=== PATIENT | female | born 1965 | race Caucasian/White ===

== ENCOUNTER → 2018-09-28 | Outpatient (CLI) | payer OTHER, SELFPAY ==
--- NOTE | 2018-09-28 10:32 | US_ITS ---
STUDY: ABDOMINAL ULTRASOUND - RIGHT UPPER QUADRANT REASON FOR VISIT: Female, 52 years old. Palpable lump of right flank TECHNIQUE: Ultrasound evaluation of the right upper quadrant was performed with real-time and static simon-scale imaging. TECHNICAL QUALITY: Adequate. COMPARISON: None. FINDINGS: The area was scanned corresponding to the palpable lump of the right flank. (Lump corresponds to region of the right kidney, which measures 11.0 x 6.4 x 6.0 cm. Right renal cortical thickness is 2.0 cm. There are 2 right renal cysts measuring 3.0 x 2.1 x 1.6 cm and 1.4 x 1.6 x 1.3 cm. A nonobstructing 3 mm right renal calcification is noted. US/Abdomen Limited IMPRESSION: Palpable lump corresponds to region of right kidney. 2 right renal cysts are noted. There is a nonobstructing 3 mm right renal calculus. No soft tissue mass or cyst was identified. Electronically Signed: Jun Farah MD at 22:45 EDT , Service support ,
== END | disposition home or self-care (01) ==
PROVIDERS: Family Provider Student in an Organized Health Care Education/Training Program; PCP Student in an Organized Health Care Education/Training Program; Referring Provider Registered Nurse; Visit Provider Registered Nurse
DX: R19.09 Other intra-abdominal and pelvic swelling, mass and lump (principal)
CPT/HCPCS: 76705

== ENCOUNTER 2019-02-25 08:26 | Emergency (ER) | payer OTHER, SELFPAY ==
[2019-02-25 08:26] VITALS: BP 151/82; PULSE 87; RESP 16; TEMP 35.9; O2SAT 97; BMI 36.9
--- NOTE | 2019-02-25 08:55 | EKG12_ITS ---
Test Reason : Blood Pressure : / mmHG Vent. Rate : 076 BPM Atrial Rate : 076 BPM P-R Int : 158 ms QRS Dur : 066 ms QT Int : 382 ms P-R-T Axes : 046 001 017 degrees QTc Int : 429 ms Normal sinus rhythm Normal ECG Confirmed by BERNADETTE BRAR, NATO ([id number]), writer editor RE MALLORY ([id number]) on 03/02/2019 11:19:15 AM Referred By: JOANN Confirmed By:NATO FLEMING MD
--- NOTE | 2019-02-25 08:56 | RAD_ITS ---
STUDY: X-RAY CHEST REASON FOR EXAM: Female, 53 years old. Attics. Hypertension. Vertigo. TECHNIQUE: PA and lateral views of the chest. COMPARISON: Comparison is made with prior study dated April 15, 2012. FINDINGS: EKG electrodes are seen. The lungs are clear and expanded. There is no demonstrated pleural abnormality. Normal size heart. Normal mediastinum and donny. Normal visualized pulmonary arteries. Normal visualized aortic arch and descending thoracic aorta. There are mild degenerative changes of the visualized thoracic spine. Normal visualized ribs, clavicles, and shoulders. There is no demonstrated abnormality of the visualized soft tissue structures of the upper abdomen. RAD/Chest PA and Lateral IMPRESSION: Normal x-ray examination of the chest. Electronically Signed: Gio Joyce, at 9:33 EST , Service support ,
--- NOTE | 2019-02-25 08:57 | ED.DCSUM_ITS ---
History of Present Illness Chief Complaint: Hypertension Informant: Patient Onset: Yesterday Context: Gradual Onset Timing: Intermittent Narrative: Patient is a 53-year-old female with history of peripheral edema and diabetes mellitus presented to evening with multiple complaints. Patient states she is been feeling lightheaded and like she might pass out. She states it is worse with she is up and doing things. She also notes that she has been having a pounding headache. Headache was gradual in onset. Headache is worse when she is working. 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 These symptoms all started yesterday. They have been intermittent. Patient had her blood pressure checked by nurse and it was 168/83. Patient denies any history of high blood pressure was quite concerned so she came to the emergency room. In addition patient notes that she has a history of peripheral vertigo. The symptoms have started over the past few days as well or worse when she lays down or moves too quickly. Patient notes that about 5 days ago she had a sore throat and congestion which have resolved. In addition she knows that she had a rash on her neck that she describes as burning and itching. Patient placed hydrocortisone cream on and this seemed to improve. She denies any new soaps, jewelry or perfumes. Patient also developed an episode of sharp stabbing pain in her right upper quadrant yesterday. She states is been constant but now the pain is in her back and not her abdomen. She did have some associated nausea but no vomiting or GI symptoms. She notes her urine has been more odorous and darker. Patient denies any vision changes. Past Medical History - Allergies and Home Meds Allergies/Adverse Reactions: Allergies Sulfa (Sulfonamide Antibiotics) Allergy (Verified 02/25/19 08:35) Rash chocolate flavor Adverse Reaction (Verified 02/25/19 08:35) Other NOSE BLEED DIAL SOAP Allergy (Uncoded 02/25/19 08:35) Rash Primary Care Physician: Taurus Cortez DO [Primary Care Provider] - Past Medical History: - - IVs mellitus, varicose veins, peripheral edema Surgical History: appendectomy Smoking Status: Never smoker Alcohol: None Drugs: None Review of Systems General: Reports: Chills, Malaise, - - Lightheaded. Denies: Fever, Sweats Eyes: Denies: Visual changes - bilaterally, Diplopia ENT: Denies: Rhinorrhea, Sore throat Cardiovascular: Denies: Chest pain, Palpitations Respiratory: Denies: Dyspnea, Cough, Dyspnea on exertion Gastrointestinal: Reports: Abdominal pain - Right upper quadrant, Nausea. Denies: Vomiting, Diarrhea, Melena, Hematochezia Genitourinary: Denies: Dysuria, Hematuria, Frequency Musculoskeletal: Denies: Back pain, Extremity Pain Skin: Reports: Rash - Neck. Denies: Wounds Neurological: Reports: Headache, - - Vertigo. Denies: Weakness, Numbness Physical Exam Vital Signs/Narrative: Vital Signs Temp Pulse Resp BP Pulse Ox 02/25/19 08:26 96.7 F L 87 16 151/82 H 97 Inital Vital Signs reviewed: Yes General: Well nourished, Well developed, No Acute Distress Head: Normocephalic, Atraumatic Eyes: Perrl, EOMI, - - Bilateral horizontal fatiguing nystagmus ENT: Moist mucous membranes, No rhinorrhea, TM's clear. Negative for: Nasal congestion, Sinus tenderness Neck: Supple, Nontender Cardiovascular: Regular rate, Regular rhythm, No murmurs Respiratory: No distress, CTA bilaterally, Chest nontender Abdomen: Soft, Nontender, Nondistended, Normal bowel sounds. Negative for: Guarding, Rebound tenderness, Berman's sign Back: Nontender, Normal Inspection. Negative for: CVA tenderness Extremities: Nontender, No edema Skin: Normal color, Rash - Mild erythematous, maculo-papular, blanching rash over her anterior neck and upper chest Neurological: Alert, Oriented x3, Cranial nerves II-XII grossly intact, Normal Strength, Normal Sensation, - - Normal coordination Psychological: Normal affect, Normal Mood Diagnostic/Tx/Re-eval Chest X-Ray - ED: 2 View, Read by ED Physician, Read by Radiologist, No Acute Disease Clinical Impression(s) from Imaging Studies Chest X-Ray 02/25/19 08:56 IMPRESSION: Normal x-ray examination of the chest. Electronically Signed: Gio Joyce, at 9:33 EST , Service support , Laboratory Data 1102/25/19 02/25/19 08:40 08:40 09:05 WBC 7.6 RBC 4.65 Hgb 14.0 Hct 42.2 MCV 90.8 MCH 30.1 MCHC 33.2 RDW Std Deviation 41.7 RDW Coeff of Mike 12.8 Plt Count 264 MPV 10.9 Immature Gran % (Auto) 0.300 Neut % (Auto) 61.2 Lymph % (Auto) 29.4 [place] % (Auto) 8.0 Eos % (Auto) 0.8 Baso % (Auto) 0.3 Absolute Neuts (auto) 4.7 Absolute Lymphs (auto) 2.23 Nucleated RBC % 0 Sodium 138 Potassium 4.1 Chloride 101 Carbon Dioxide 27.0 Anion Gap 10 BUN 14 Creatinine 0.76 Estim Creat Clear Calc 70.81 Est GFR (MDRD) Af Amer 102 Est GFR (MDRD) Non-Af 84 BUN/Creatinine Ratio 18.4 Glucose 267 H Calcium 8.9 Total Bilirubin 0.50 AST 15 ALT 35 Alkaline Phosphatase 52 Troponin I < 0.015 Total Protein 8.0 Albumin 3.7 Globulin 4.3 H Albumin/Globulin Ratio 0.9 Lipase 151 Urine Color Yellow Urine Clarity Cloudy Urine pH 6.0 Ur Specific [place] 1.020 Urine Protein 15 H Urine Glucose (UA) 1000 H Urine Ketones 5 H Urine Occult Blood 10 H Urine Nitrite Positive H Urine Bilirubin Negative Urine Urobilinogen Normal Ur Leukocyte Esterase 500 H Urine RBC 0-5 SEEN Urine WBC 50-100 SEEN Ur Squamous Epith Cells 0-5 SEEN Urine Bacteria 4+ Urine Mucus 2+ - Rhythm Strip Rhythm Strip: Sinus Rhythm Rate: 76 Ectopy: None - EKG Initial EKG Interpretation: Sinus Rhythm, - - Normal sinus rhythm rate of 78 Normal intervals Normal axis Normal ST segments - Medical Decision Making Patient is evaluated for multiple complaints including lightheadedness, vertigo, generalized malaise and nausea. She appears nontoxic in no acute distress. Vital signs are significant only for mild hypertension. On repeat patient's blood pressure starts to improve without any intervention. She does have of findings consistent with peripheral vertigo on exam that seem to be worse with rightward gaze. Otherwise she has benign physical exam. EKG is grossly normal. CBC normal. CMP is remarkable for hyperglycemia however patient has a normal anion gap and normal bicarb. Urinalysis is consistent with urinary tract i nfection. As patient is diabetic urine culture sent. She started on Keflex. She is also given a dose of Antivert in the emergency room. Patient did comment that she did not take her Lantus last night because she was sleeping all day yesterday. Patient is instructed to take a half dose of her Lantus when she gets home. She is instructed to follow-up with her primary care doctor next week for reevaluation of her blood glucose. Patient is counseled on signs and symptoms requiring return to the emergency room. Patient verbalizes agreement and understand this plan. Patient discharged home in stable and improved condition. ED Disposition - Plan for ED Patient: Disposition: Home or Assisted Living Diagnosis: Urinary tract infection, Peripheral vertigo involving right ear, Hyperglycemia due to type 2 diabetes mellitus Instructions: Understanding Urinary Tract Infections (UTIs), Benign Positional Vertigo Prescriptions: Meclizine HCl [Antivert] 25 mg PO 4X/DAY PRN PRN #15 tab PRN Reason: Vertigo Prescription Printed Cephalexin [Keflex] 500 mg PO BID #10 cap Prescription Printed Referrals: Taurus Cortez DO [Primary Care Provider] - Additional Instructions: I suspect you feeling bad because of urinary tract infection. You are started on antibiotics for this. Make sure you drink plenty of fluids. Your blood glucose was elevated today. Take a half dose of Lantus when you get home and then take your normal dose of Lantus tonight. Do the exercises we discussed to help with your vertigo. You have been given a printout for these. Continue to apply hydrocortisone ointment to your rash as needed. Return to the emergency room if you develop any worsening symptoms or further concerns.
[2019-02-25] MEDS: Ketorolac 15 MG/ML Vial IV (09:02)
[2019-02-25] MEDS: Meclizine HCl 25 MG Tablet PO (09:02)
[2019-02-25 09:05] VITALS: BP 120/59; PULSE 80; RESP 20; O2SAT 96
[2019-02-25 09:12] VITALS: BP 159/68; PULSE 67; RESP 20; O2SAT 99
[2019-02-25 09:16] LABS: Absolute Lymphocyte Count 2.23 X10^3/uL (0.83-4.51); Absolute Neutrophil Count 4.7 X10^3/uL (2.0-7.7); Basophil# 0.02 X10^3/uL; Basophil% 0.3 % (0-1); Eosinophil# 0.06 X10^3/uL; Eosinophils% 0.8 % (0-5); Hematocrit 42.2 % (37-47); Lymphocyte # 2.23 X10^3/ul (4.0); Lymphocyte % 29.4 % (19-41); Mean Corp Hgb Conc 33.2 g/dL (32-36); Mean Corpuscular Hgb 30.1 pg (27.0-32.0); Mean Corpuscular Volume 90.8 fL (81-99); Mean Platelet Vol. 10.9 fl (6.2-12.0); Monocyte# 0.61 X10^3/uL; NRBC Flagged by Analyzer 0 % (0-5); Neutrophil # 4.65 X10^3/uL (2.7-7.7); Neutrophil % 61.2 % (47-70); Platelet Count 264 K/mm3 (150-450); RBC Distribution Width CV 12.8 % (11.6-14.6); RBC Distribution Width SD 41.7 fl (35.1-43.9); Red Blood Count 4.65 M/mm3 (4.2-5.4); White Blood Count 7.6 K/mm3 (4.4-11.0)
[2019-02-25 09:24] LABS: ALB/GLOB Ratio 0.9 RATIO (0.9-2.4); AST(SGOT) 15 U/L (15-37); Alanine Aminotransfer ALT/SGPT 35 U/L (13-56); Albumin, Serum 3.7 g/dL (3.2-5.0); Alkaline Phosphatase 52 U/L (45-117); Anion Gap 10 (5-15); BUN 14 mg/dL (7-18); BUN/Creat Ratio 18.4 RATIO (10-20); Calcium,Total 8.9 mg/dL (8.5-10.1); Chloride 101 mmol/L (98-107); Creatinine, Serum 0.76 mg/dL (0.55-1.02); EST Glomerular Filtration Rate 84 mL/min (>60); Est Glom Filt Rate - Afr Amer 102 mL/min (>60); Estimated Creatinine Clearance 70.81 ml/min; Globulin 4.3 g/dL (2.2-4.2); Glucose 267 mg/dL (74-106); Lipase 151 U/L (73-393); Potassium 4.1 mmol/L (3.5-5.1); Sodium Level 138 mmol/L (136-145)
[2019-02-25 09:35] LABS: Color, Urine Yellow (Yellow); Glucose, Dipstick 1000 mg/dl (Normal); Ketone-Dipstick 5 mg/dl (Negative); Leukocyte Esterase-Dipstick 500 /ul (Negative); Nitrite-Dipstick Positive (Negative); Occult Blood-Urine 10 /ul (Negative); Protein-Dipstick 15 mg/dl (Negative); Urine Bilirubin Dipstick Negative (Negative); Urine Clarity Cloudy (Clear); Urine Urobilinogen Normal (Normal)
[2019-02-25 09:56] LABS: Red Blood Cells-Urine 0-5 SEEN /hpf (0-5); Squamous Epithelial Cells - UA 0-5 SEEN /hpf (5-10); White Blood Cells 50-100 SEEN /hpf (0-5)
[2019-02-25 09:57] LABS: Bacteria 4+ /hpf (None Seen); Mucous, Urine 2+ /hpf (<or=2+)
[2019-02-25] MEDS: Cephalexin 250 MG Capsule 500 MG PO (10:06)
[2019-02-25 10:07] VITALS: BP 114/85; PULSE 71; RESP 14; O2SAT 98
== END 2019-02-25 10:13 | disposition home or self-care (01) ==
PROVIDERS: Emergency Provider Emergency Medicine; Family Provider Student in an Organized Health Care Education/Training Program; PCP Student in an Organized Health Care Education/Training Program
DX: N39.0 Urinary tract infection, site not specified (principal); H81.391 Other peripheral vertigo, right ear; E11.65 Type 2 diabetes mellitus with hyperglycemia; R21 Rash and other nonspecific skin eruption; I10 Essential (primary) hypertension; R60.0 Localized edema; I83.90 Asymptomatic varicose veins of unspecified lower extremity; Z79.4 Long term (current) use of insulin; Z79.84 Long term (current) use of oral hypoglycemic drugs
CPT/HCPCS: 71046; 80053; 81001; 83690; 84484; 85025; 87077; 87086; 87088; 87186; 93005; 96374; 99285; A4216

== ENCOUNTER 2019-07-06 06:58 | Emergency (ER) | payer OTHER, SELFPAY ==
[2019-07-06 06:59] VITALS: BP 170/75; PULSE 81; RESP 18; TEMP 36.4; O2SAT 97; BMI 37.8
--- NOTE | 2019-07-06 07:19 | RAD_ITS ---
STUDY: X-RAY CHEST REASON FOR EXAM: Female, 53 years old. Cough, sore throat TECHNIQUE: Single AP portable view of the chest. COMPARISON: Comparison is made with prior study dated 02/25/2019. FINDINGS: The lungs are clear and expanded. There is no demonstrated pleural abnormality. Normal size heart. Normal mediastinum and donny. Normal visualized pulmonary arteries. Normal visualized aortic arch and descending thoracic aorta. Normal visualized thoracic spine. Normal visualized ribs, clavicles, and shoulders. There is no demonstrated abnormality of the visualized soft tissue structures of the upper abdomen. RAD/Chest 1 View (Portable) IMPRESSION: Normal x-ray examination of the chest. Electronically Signed: Gio Joyce, at 8:22 EDT , Service support ,
--- NOTE | 2019-07-06 07:20 | ED.DCSUM_ITS ---
- ER Visit Summary Date of Service: 07/06/19 Chief Complaint: Cough and sore throat History of Present Illness: The patient is a 53 F who presents with cough and sore throat that is been getting worse over the past 3 days. Patient states her cough is a dry cough. Patient states her throat feels scratchy. Patient states her throat feels better after drinking hot liquids. Patient denies any fevers or chills. Patient denies any shortness of breath. Patient does admit to some rhinorrhea and postnasal drainage. Patient admits to an episode of vomiting after coughing but denies any other nausea or vomiting. Physical Examination: Vital signs are stable. Patient is afebrile. Patient is in no acute distress. Oral mucosa is pink and moist. Oropharynx shows some postnasal drainage. There are no exudates. Tympanic membranes are clear. Neck is supple. Trachea is midline. There is no JVD or lymphadenopathy. Heart was regular rate and rhythm. Lungs are clear and equal bilaterally. Abdomen is soft and nontender. Extremities are intact. There is no calf tenderness or edema. Cranial nerves II through XII are intact. There are no focal motor or sensory deficits. Test Results: PA and lateral chest x-ray was obtained. There is no acute cardi opulmonary process. This is interpreted by myself and the radiologist. Influenza and RSV swabs were obtained and were negative. Emergency Department Course and Treatment: Patient was given a dose of Tessalon Perle. Patient was advised of her findings. Patient was advised that this is most likely a viral upper respiratory infection. Patient was advised that this could be coronavirus. Patient was instructed to isolate herself for the next 2 weeks. Patient was instructed to follow-up with her primary care physician. Patient was instructed to return if any shortness of breath, fevers, or feeling worse in any way. Patient understood and was agreeable with the plan. All questions were answered. Disposition: Discharge home Impression: Viral upper respiratory infection This note was generated with myLINGO dictation software. It may contain incorrect words, spelling, and punctuation that were not noted in review of the chart prior to signing ED Disposition - Plan for ED Patient: Disposition: Home or Assisted Living Diagnosis: Viral upper respiratory tract infection with cough Instructions: URI, Viral, No Abx (Adult) Referrals: Taurus Cortez DO [Primary Care Provider] - 1-2 Weeks
[2019-07-06] MEDS: Benzonatate 100 MG Capsule 200 MG PO (07:37)
[2019-07-06 08:36] VITALS: PULSE 72; O2SAT 99
== END 2019-07-06 08:36 | disposition home or self-care (01) ==
PROVIDERS: Emergency Provider Emergency Medicine; PCP Student in an Organized Health Care Education/Training Program
DX: J06.9 Acute upper respiratory infection, unspecified (principal); E66.9 Obesity, unspecified; E11.9 Type 2 diabetes mellitus without complications; Z79.4 Long term (current) use of insulin; Z79.84 Long term (current) use of oral hypoglycemic drugs
CPT/HCPCS: 71045; 87804; 87807; 99282

== ENCOUNTER 2019-12-29 12:21 | Outpatient (RCR) | payer OTHER, SELFPAY | END 2020-01-12 23:59 | LOC: EMPH 12:21 | PROVIDERS: PCP Student in an Organized Health Care Education/Training Program; Visit Provider Family Medicine Geriatric Medicine | DX: Z11.59 Encounter for screening for other viral diseases (principal) | CPT/HCPCS: 87635; U0003 ==

== ENCOUNTER 2020-02-11 17:50 | Outpatient (RCR) | payer OTHER, SELFPAY | END 2020-02-12 23:59 | LOC: EMPH 17:50 | PROVIDERS: PCP Student in an Organized Health Care Education/Training Program; Visit Provider Family Medicine Geriatric Medicine | DX: Z03.818 Encounter for observation for suspected exposure to other biological agents ruled out (principal) | CPT/HCPCS: 87426 ==

== ENCOUNTER 2020-03-08 07:48 | Outpatient (RCR) | payer OTHER, SELFPAY ==
[2020-02-24 12:31] LABS: Probe Check PASS; Specimen Processing Control PASS
== END 2020-03-13 23:59 ==
LOC: EMPH 07:48
PROVIDERS: PCP Student in an Organized Health Care Education/Training Program; Visit Provider Family Medicine Geriatric Medicine
DX: Z03.818 Encounter for observation for suspected exposure to other biological agents ruled out (principal)
CPT/HCPCS: 87426; 87635; U0002

== ENCOUNTER 2020-04-12 14:16 | Outpatient (RCR) | payer OTHER, SELFPAY | END 2020-04-13 23:59 | LOC: EMPH 14:16 | PROVIDERS: PCP Student in an Organized Health Care Education/Training Program; Referring Provider Family Medicine Geriatric Medicine; Visit Provider Family Medicine Geriatric Medicine | DX: Z03.818 Encounter for observation for suspected exposure to other biological agents ruled out (principal) | CPT/HCPCS: 87426 ==

== ENCOUNTER 2020-05-12 08:38 | Outpatient (RCR) | payer OTHER, SELFPAY | END 2020-05-14 23:59 | LOC: EMPH 08:38 | PROVIDERS: PCP Student in an Organized Health Care Education/Training Program; Referring Provider Family Medicine Geriatric Medicine; Visit Provider Family Medicine Geriatric Medicine | DX: Z03.818 Encounter for observation for suspected exposure to other biological agents ruled out (principal) | CPT/HCPCS: 87426 ==

== ENCOUNTER 2020-06-09 09:50 | Outpatient (RCR) | payer OTHER, SELFPAY | END 2020-06-11 23:59 | LOC: EMPH 09:50 | PROVIDERS: PCP Student in an Organized Health Care Education/Training Program; Referring Provider Family Medicine Geriatric Medicine; Visit Provider Family Medicine Geriatric Medicine | DX: Z03.818 Encounter for observation for suspected exposure to other biological agents ruled out (principal) | CPT/HCPCS: 87426 ==

== ENCOUNTER 2020-07-05 09:43 | Outpatient (RCR) | payer OTHER, SELFPAY | END 2020-07-12 23:59 | LOC: EMPH 09:43 | PROVIDERS: PCP Student in an Organized Health Care Education/Training Program; Referring Provider Family Medicine Geriatric Medicine; Visit Provider Family Medicine Geriatric Medicine | DX: Z03.818 Encounter for observation for suspected exposure to other biological agents ruled out (principal) | CPT/HCPCS: 87426 ==

== ENCOUNTER 2020-08-08 14:22 | Outpatient (RCR) | payer OTHER, SELFPAY | END 2020-08-11 23:59 | LOC: EMPH 14:22 | PROVIDERS: PCP Student in an Organized Health Care Education/Training Program; Referring Provider Family Medicine Geriatric Medicine; Visit Provider Family Medicine Geriatric Medicine | DX: Z03.818 Encounter for observation for suspected exposure to other biological agents ruled out (principal) | CPT/HCPCS: 87426 ==

== ENCOUNTER 2020-10-10 11:15 | Outpatient (RCR) | payer OTHER, SELFPAY | END 2020-10-11 23:59 | LOC: EMPH 11:15 | PROVIDERS: PCP Student in an Organized Health Care Education/Training Program; Referring Provider Family Medicine Geriatric Medicine; Visit Provider Family Medicine Geriatric Medicine | DX: Z03.818 Encounter for observation for suspected exposure to other biological agents ruled out (principal) | CPT/HCPCS: 87426 ==

== ENCOUNTER 2020-12-12 12:35 | Outpatient (RCR) | payer OTHER, SELFPAY | END 2020-12-12 23:59 | LOC: EMPH 12:35 | PROVIDERS: PCP Student in an Organized Health Care Education/Training Program; Referring Provider Family Medicine Geriatric Medicine; Visit Provider Family Medicine Geriatric Medicine | DX: Z03.818 Encounter for observation for suspected exposure to other biological agents ruled out (principal) | CPT/HCPCS: 87426 ==

== ENCOUNTER 2020-12-25 13:53 | Outpatient (RCR) | payer OTHER, SELFPAY ==
[2020-12-13 00:15] VITALS: BMI 37.8
== END 2021-01-11 23:59 ==
LOC: EMPH 13:53
PROVIDERS: PCP Student in an Organized Health Care Education/Training Program; Referring Provider Family Medicine Geriatric Medicine; Visit Provider Family Medicine Geriatric Medicine
DX: Z03.818 Encounter for observation for suspected exposure to other biological agents ruled out (principal)
CPT/HCPCS: 87426

== ENCOUNTER 2021-02-13 09:06 | Outpatient (RCR) | payer OTHER, SELFPAY ==
[2021-01-12 00:11] VITALS: BMI 37.8
== END 2021-03-13 23:59 ==
LOC: EMPH 09:06
PROVIDERS: PCP Student in an Organized Health Care Education/Training Program; Referring Provider Family Medicine Geriatric Medicine; Visit Provider Family Medicine Geriatric Medicine
DX: Z03.818 Encounter for observation for suspected exposure to other biological agents ruled out (principal)
CPT/HCPCS: 87426

== ENCOUNTER 2021-04-12 08:55 | Outpatient (RCR) | payer OTHER, SELFPAY ==
[2021-03-14 00:06] VITALS: BMI 37.8
== END 2021-04-13 23:59 ==
LOC: EMPH 08:55
PROVIDERS: PCP Student in an Organized Health Care Education/Training Program; Referring Provider Family Medicine Geriatric Medicine; Visit Provider Family Medicine Geriatric Medicine
DX: Z03.818 Encounter for observation for suspected exposure to other biological agents ruled out (principal)
CPT/HCPCS: 87426; 87635; U0003; U0005

== ENCOUNTER 2021-05-14 10:42 | Outpatient (RCR) | payer OTHER, SELFPAY ==
[2021-04-14 00:10] VITALS: BMI 37.8
== END 2021-05-14 23:59 ==
LOC: EMPH 10:42
PROVIDERS: PCP Student in an Organized Health Care Education/Training Program; Referring Provider Family Medicine Geriatric Medicine; Visit Provider Family Medicine Geriatric Medicine
DX: Z03.818 Encounter for observation for suspected exposure to other biological agents ruled out (principal)
CPT/HCPCS: 87426

== ENCOUNTER 2021-06-11 12:26 | Outpatient (RCR) | payer OTHER, SELFPAY ==
[2021-05-15 00:17] VITALS: BMI 37.8
== END 2021-06-11 23:59 ==
LOC: EMPH 12:26
PROVIDERS: PCP Student in an Organized Health Care Education/Training Program; Referring Provider Family Medicine Geriatric Medicine; Visit Provider Family Medicine Geriatric Medicine
DX: Z03.818 Encounter for observation for suspected exposure to other biological agents ruled out (principal)
CPT/HCPCS: 87426

== ENCOUNTER 2021-06-27 07:26 | Outpatient (CLI) | payer OTHER, SELFPAY ==
[2021-06-27 07:57] LABS: Absolute Neutrophil Count 3.9 X10^3/uL (2.0-7.7); Basophil# 0.05 X10^3/uL; Basophil% 0.7 % (0-1); Eosinophil# 0.32 X10^3/uL; Eosinophils% 4.4 % (0-5); Hematocrit 40.6 % (37-47); Hemoglobin 13.4 g/dL (12.0-15.0); Lymphocyte % 33.2 % (19-41); Mean Corpuscular Hgb 30.4 pg (27.0-32.0); Mean Corpuscular Volume 92.1 fL (81-99); Mean Platelet Vol. 10.3 fl (6.2-12.0); Monocyte# 0.52 X10^3/uL; Monocyte% 7.2 % (0-10); NRBC Flagged by Analyzer 0 % (0-5); Neutrophil # 3.91 X10^3/uL (2.7-7.7); Neutrophil % 54.2 % (47-70); Platelet Count 247 K/mm3 (150-450); RBC Distribution Width CV 13.4 % (11.6-14.6); RBC Distribution Width SD 45.5 fl (35.1-43.9); Red Blood Count 4.41 M/mm3 (4.2-5.4); White Blood Count 7.2 K/mm3 (4.4-11.0)
[2021-06-27 08:18] LABS: Microalbumin,Random Urine 8.4 mg/L (NO RANGE EST.); Microalbumin:Creatinine Ratio 20.3 mg/g CRE (<30 mg/g CRE)
[2021-06-27 08:25] LABS: AST(SGOT) 15 U/L (15-37); Alanine Aminotransfer ALT/SGPT 28 U/L (13-56); Albumin, Serum 3.7 g/dL (3.2-5.0); Alkaline Phosphatase 56 U/L (45-117); Anion Gap 5 (5-15); BUN 10 mg/dL (7-18); BUN/Creat Ratio 14.4 RATIO (10-20); Calcium,Total 9.3 mg/dL (8.5-10.1); Chloride 104 mmol/L (98-107); Cholesterol 186 mg/dL (200); Creatinine, Serum 0.69 mg/dL (0.55-1.02); EST Glomerular Filtration Rate 93 mL/min (>60); Est Glom Filt Rate - Afr Amer 113 mL/min (>60); Globulin 3.7 g/dL (2.2-4.2); Glucose 153 mg/dL (74-106); High Density Lipoprotein 38 mg/dL; Potassium 4.4 mmol/L (3.5-5.1); Protein, Total 7.4 g/dL (6.4-8.2); Sodium Level 139 mmol/L (136-145); Triglycerides 148 mg/dL; Very Low Density Lipoprotein 30 mg/dL (5-40)
[2021-06-27 09:56] LABS: Hemoglobin A1c 7.6 % (3.8-5.6)
== END 2021-06-27 23:59 | disposition home or self-care (01) ==
LOC: LAB 07:27
PROVIDERS: PCP Student in an Organized Health Care Education/Training Program; Referring Provider Nurse Practitioner Family; Visit Provider Nurse Practitioner Family
DX: E11.42 Type 2 diabetes mellitus with diabetic polyneuropathy (principal); E11.3399 Type 2 diabetes mellitus with moderate nonproliferative diabetic retinopathy without macular edema, unspecified eye; Z79.4 Long term (current) use of insulin; E78.5 Hyperlipidemia, unspecified
CPT/HCPCS: 36415; 80053; 80061; 82043; 82570; 83036; 85025

== ENCOUNTER → 2022-01-29 | Outpatient (CLI) | payer OTHER, SELFPAY ==
[2022-01-30 10:26] LABS: Hemoglobin A1c 7.3 % (3.8-5.6)
== END | disposition home or self-care (01) ==
PROVIDERS: PCP Student in an Organized Health Care Education/Training Program; Visit Provider Nurse Practitioner Family
DX: E11.42 Type 2 diabetes mellitus with diabetic polyneuropathy (principal)
CPT/HCPCS: 36415; 83036

== ENCOUNTER → 2022-02-07 | Outpatient (CLI) | payer OTHER, SELFPAY ==
--- NOTE | 2022-02-07 10:40 | BI_ITS ---
MAMMOGRAPHY - BILATERAL SCREENING REASON FOR EXAM: Female, 56 years old. Routine annual screening examination. PERTINENT HISTORY: Non-contributory. TECHNIQUE: Digital bilateral breast jesus (3D mammographic acquisition) in the CC and MLO projections. 2-D mediolateral oblique (MLO) and craniocaudad (CC) views of both breasts were obtained. CAD: Full Field Digital Mammography with Computer Added Detection was performed. COMPARISON: Comparison is made with prior examination 08/14/2020. FINDINGS: Breast Composition: There are scattered areas of fibroglandular density. There are no dominant masses or suspicious calcifications. Stable small benign-appearing bilateral axillary lymph nodes. No other significant abnormalities are identified. There has been no significant change since the prior study. BI/SCRN MAMM (CAD)W/JESUS BILAT IMPRESSION: Stable bilateral screening mammogram. Yearly follow-up mammogram recommended. (A) ASSESSMENT CATEGORY: BIRADS Category 2: Benign. A letter regarding these results will be sent to the patient by the facility within 30 days. Approximately 10% of breast cancers are not detected by mammography. A normal mammogram should not delay biopsy of a clinically suspicious abnormality. [id number] Electronically Signed: Gio Joyce MD at 12:08 EDT ,
== END | disposition home or self-care (01) ==
LOC: OPBI 10:38
PROVIDERS: PCP Student in an Organized Health Care Education/Training Program; Referring Provider Student in an Organized Health Care Education/Training Program; Visit Provider Student in an Organized Health Care Education/Training Program
DX: Z12.31 Encounter for screening mammogram for malignant neoplasm of breast (principal)
CPT/HCPCS: 77063; 77067

== ENCOUNTER → 2023-02-08 | Outpatient (CLI) | payer OTHER, SELFPAY ==
[2023-02-08 08:42] LABS: Hemoglobin A1c 7.2 % (3.8-5.6)
[2023-02-08 08:45] LABS: Microalbumin,Random Urine 6.7 mg/L (NO RANGE EST.)
== END | disposition home or self-care (01) ==
LOC: LAB 07:15
PROVIDERS: PCP Student in an Organized Health Care Education/Training Program; Visit Provider Nurse Practitioner Family
DX: E11.42 Type 2 diabetes mellitus with diabetic polyneuropathy (principal); E78.5 Hyperlipidemia, unspecified
CPT/HCPCS: 82043; 82570; 83036

== ENCOUNTER → 2023-02-19 | Outpatient (CLI) | payer OTHER, SELFPAY ==
[2023-02-19 17:01] LABS: Uric Acid 4.6 mg/dL (2.6-6.0)
[2023-02-19 17:08] LABS: Microalbumin:Creatinine Ratio 11.7 mg/g CRE (<30 mg/g CRE)
== END | disposition home or self-care (01) ==
PROVIDERS: PCP Student in an Organized Health Care Education/Training Program; Visit Provider Nurse Practitioner Family
DX: M10.9 Gout, unspecified (principal)
CPT/HCPCS: 36415; 82043; 82570; 84550

== ENCOUNTER 2023-09-04 00:13 | Emergency (ER) | payer OTHER, SELFPAY ==
[2023-09-04 00:14] VITALS: BP 159/80; PULSE 81; RESP 16; TEMP 36.6; O2SAT 98; BMI 35.7
--- NOTE | 2023-09-04 00:32 | EDS_ITS ---
HPI HPI - GI History of Present Illness Chief Complaint: Diarrhea Informant: patient and spouse/S.O. Narrative Narrative: 57-year-old female states she has had profuse watery nonbloody diarrhea for the past 3 days, she states she went 11 times in the last hour or 2, she has not been eating or drinking as much because her appetite is poor and because every time she does so the diarrhea is worse, she states she did not urinate all day today presenting here around midnight. She feels fatigued and very poor. She has some mild abdominal cramping before she has diarrhea but then it goes away. No other pains. No nausea or vomiting. No fevers or chills. She states this started just after eating at [employer], and her who ate with her had some mild diarrhea afterwards but his got better quickly and hers is getting worse. She is on no immunocompromising medications. No travel out of the area or the country recently. No camping or drinking new sources of ground water. [facility] Medical History Contact with and (suspected) exposure to other viral communicable diseases Acute streptococcal pharyngitis Lab test negative for COVID-19 virus URI (upper respiratory infection) Allergic reaction caused by a drug Diabetes Shoulder pain HTN (hypertension) Home Medications ?Medication ?Instructions ?Recorded ?Last Taken ?Type insulin glargine 100 unit/mL 10 unit SQ QHS 02/25/19 Unknown History subcutaneous solution pravastatin 10 mg tablet 10 mg PO DAILY 12/28/20 Unknown History ciprofloxacin HCl 500 mg tablet 500 mg PO BID #5 TABLETS 09/04/23 Unknown Rx metoprolol succinate 25 mg 25 mg PO DAILY palpitations 09/04/23 Unknown History tablet,extended release 24 hr Allergy/AdvReac Type Severity Reaction Status Date / Time Sulfa (Sulfonamide Allergy Rash Verified 09/04/23 00:16 Antibiotics) chocolate flavor AdvReac Other Verified 09/04/23 00:16 soap AdvReac Rash Verified 09/04/23 00:16 Social History Smoking Status: Never smoker ROS ROS ED Constitutional Constitutional ED: Reports fatigue; Denies chills or fever(s) Eyes Eyes: Denies change in vision or diplopia ENT ENT ED: Denies rhinorrhea or sore throat Cardiovascular Cardiovascular: Denies chest pain or palpitations Respiratory/Chest Respiratory/Chest: Denies cough or dyspnea Gastrointestinal Gastrointestinal: Reports abdominal pain and diarrhea; Denies hematochezia, melena, nausea or vomiting Genitourinary Genitourinary ED: Reports decreased urination and drinking/eating less; Denies dysuria or hematuria Musculoskeletal Musculoskeletal: Denies back pain or neck pain Integumentary Denies abscess or rash Neurologic Neurologic: Denies headache(s), paresthesias or weakness Psychiatric Psychiatric: Denies suicidal thoughts EXAM Physical Exam Const Vital Signs: 09/04/23 00:14 09/04/23 02:14 Temperature 97.9 F Temperature Source Oral Pulse Rate 81 67 Respiratory Rate 16 16 Blood Pressure 159/80 H 147/67 H Blood Pressure Mean 106 93 Pulse Ox 98 99 Oxygen Delivery Method Room Air Room Air Positive well nourished and well developed General Appearance ED: well developed and NAD HEENT Reports moist mucous membranes normocephalic and atraumatic Eyes PERRL and EOMs intact bilaterally Neck full ROM and supple Resp normal respiratory effort and clear to auscultation bilaterally Cardio regular rate, regular rhythm and no murmurs GI non-tender and non-distended Auscultation: hyperactive bowel sounds Palpation: soft Back/Spine no CVA tenderness General Back: other FROM Extremity normal to inspection General Extremety ED: Negative for edema, pulses abnormal or tenderness General Extremity: Negative for edema or pulses abnormal Neuro oriented x3, CN's II-XII intact bilaterally and no sensory deficits noted Sensorium / Orientation: awake and alert Motor Exam: strength 5/5 throughout Psych mental status grossly normal and thought process normal Skin no rashes or lesions noted and no wounds MDM MDM MDM Narrative Medical decision making narrative: Patient was given a liter of IV fluids, she feeling much better on reevaluation. She was able to have diarrhea here and we sent her for testing. Fecal white blood cell smear came back positive, suggesting possible invasive/bacterial etiology. She does not have a significant leukocytosis, and her electrolytes are normal except for bicarb which is low consistent with diarrhea. Liver enzymes are normal. Vital signs are normal. We discussed the pros and cons of trying to 3-day course of Cipro. She understands it could make the diarrhea worse, but she wants to try it which I think is reasonable. 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 Patient advised to follow-up regarding the results of that and to wait on using Imodium until she consults with somebody unless it is negative completely then she is okay using it. Lab Data Attestation: I reviewed the patient's lab results. Labs: Laboratory Results - last 24 hr 09/04/23 00:42 WBC 5.9 RBC 4.40 Hgb 13.0 Hct 39.8 MCV 90.5 MCH 29.5 MCHC 32.7 RDW Std Deviation 43.4 RDW Coeff of Mike 13.2 Plt Count 210 MPV 10.3 Immature Gran % (Auto) 0.300 Neut % (Auto) 48.1 Lymph % (Auto) 36.7 [place] % (Auto) 12.2 H Eos % (Auto) 1.9 Baso % (Auto) 0.8 Absolute Neuts (auto) 2.8 Absolute Lymphs (auto) 2.16 Nucleated RBC % 0 Sodium 137 Potassium 3.9 Chloride 111 H Carbon Dioxide 18.0 L Anion Gap 8 BUN 9 Creatinine 0.71 Estim Creat Clear Calc 97.46 Est GFR (MDRD) Af Amer 110 Est GFR (MDRD) Non-Af 91 BUN/Creatinine Ratio 12.7 Glucose 194 H Calcium 8.6 Total Bilirubin 0.30 AST 21 ALT 28 Alkaline Phosphatase 46 Total Protein 7.2 Albumin 3.4 Globulin 3.8 Albumin/Globulin Ratio 0.9 Discharge Plan Triage Chief Complaint: Diarrhea ED Provider: Maverick Dominguez Dx/Rx/DC Orders Clinical Impression: Acute infectious diarrhea, Mild dehydration Instructions: ED Diarrhea, Unknown Cause Prescriptions: New ciprofloxacin HCl 500 mg tablet 500 mg PO BID Qty: 5 0RF No Action pravastatin 10 mg tablet 10 mg PO DAILY Patient Comments: Take 1 tablet by mouth once daily. insulin glargine 100 UNIT/ML solution 10 unit SQ QHS metoprolol succinate 25 mg tablet extended release 24 hr 25 mg PO DAILY Primary Care Provider: Taurus Cortez Referrals: Taurus Cortez, DO [Primary Care Provider] - 3-5 Days if not improving Print Language: Vincentian Disposition Disposition: Home, Self Care
[2023-09-04] MEDS: 0.9% Normal Saline (1000mL) 2,000 ML 999 ML IV (00:42)
[2023-09-04 00:50] LABS: Absolute Lymphocyte Count 2.16 X10^3/uL (0.83-4.51); Absolute Neutrophil Count 2.8 X10^3/uL (2.0-7.7); Basophil# 0.05 X10^3/uL; Basophil% 0.8 % (0-1); Eosinophil# 0.11 X10^3/uL; Eosinophils% 1.9 % (0-5); Hematocrit 39.8 % (37-47); Lymphocyte # 2.16 X10^3/ul (0.83-4.51); Lymphocyte % 36.7 % (19-41); Mean Corp Hgb Conc 32.7 g/dL (32-36); Mean Corpuscular Hgb 29.5 pg (27.0-32.0); Mean Corpuscular Volume 90.5 fL (81-99); Mean Platelet Vol. 10.3 fl (6.2-12.0); Monocyte# 0.72 X10^3/uL; Monocyte% 12.2 % (0-10); NRBC Flagged by Analyzer 0 % (0-5); Neutrophil # 2.83 X10^3/uL (2.7-7.7); Neutrophil % 48.1 % (47-70); Platelet Count 210 K/mm3 (150-450); RBC Distribution Width CV 13.2 % (11.6-14.6); RBC Distribution Width SD 43.4 fl (35.1-43.9); White Blood Count 5.9 K/mm3 (4.4-11.0)
[2023-09-04 01:10] LABS: ALB/GLOB Ratio 0.9 RATIO (0.9-2.4); AST(SGOT) 21 U/L (15-37); Alanine Aminotransfer ALT/SGPT 28 U/L (13-56); Albumin, Serum 3.4 g/dL (3.2-5.0); Alkaline Phosphatase 46 U/L (45-117); Anion Gap 8 (5-15); BUN 9 mg/dL (7-18); BUN/Creat Ratio 12.7 RATIO (10-20); Calcium,Total 8.6 mg/dL (8.5-10.1); Chloride 111 mmol/L (98-107); Creatinine, Serum 0.71 mg/dL (0.55-1.02); EST Glomerular Filtration Rate 91 mL/min (>60); Est Glom Filt Rate - Afr Amer 110 mL/min (>60); Estimated Creatinine Clearance 97.46 ml/min; Globulin 3.8 g/dL (2.2-4.2); Glucose 194 mg/dL (74-106); Potassium 3.9 mmol/L (3.5-5.1); Protein, Total 7.2 g/dL (6.4-8.2); Sodium Level 137 mmol/L (136-145)
[2023-09-04 02:14] VITALS: BP 147/67; PULSE 67; RESP 16; O2SAT 99
[2023-09-04] MEDS: Ciprofloxacin 500 MG Tablet PO (03:44)
[2023-09-04 03:47] VITALS: BP 149/96; PULSE 74; RESP 16; TEMP 36.3; O2SAT 99
== END 2023-09-04 03:47 | disposition home or self-care (01) ==
PROVIDERS: Emergency Provider Emergency Medicine; PCP Student in an Organized Health Care Education/Training Program; Visit Provider Emergency Medicine
DX: E86.0 Dehydration (principal); E11.9 Type 2 diabetes mellitus without complications; Z79.4 Long term (current) use of insulin; A09 Infectious gastroenteritis and colitis, unspecified; I10 Essential (primary) hypertension; Z79.899 Other long term (current) drug therapy
CPT/HCPCS: 80053; 83630; 85025; 87506; 96360; 96361; 99283; J7030; A4216

== ENCOUNTER → 2023-09-19 | Outpatient (CLI) | payer OTHER, SELFPAY | END | disposition home or self-care (01) | LOC: EMPH 13:29 | PROVIDERS: PCP Student in an Organized Health Care Education/Training Program; Visit Provider Family Medicine Geriatric Medicine | DX: Z03.818 Encounter for observation for suspected exposure to other biological agents ruled out (principal) | CPT/HCPCS: 87811 ==

== ENCOUNTER 2023-09-21 02:09 | Emergency (ER) | payer OTHER, SELFPAY ==
[2023-09-21] VITALS (7 sets, daily range): BP systolic 136–189; BP diastolic 55–89; PULSE 53–94; RESP 14–18; TEMP 35.6–36.4; O2SAT 95–98; BMI 35.2
[2023-09-21] MEDS: 0.9% Normal Saline (1000mL) 1,000 ML 999 ML IV (03:03)
[2023-09-21] MEDS: Morphine 4 MG/ML Syringe IV (03:04)
[2023-09-21] MEDS: Ondansetron 4 MG/2 ML Vial IV (03:04)
[2023-09-21 03:12] LABS: Bacteria 0 SEEN /hpf (None Seen); Mucous, Urine 0 SEEN /hpf (<or=2+); Red Blood Cells-Urine 0 SEEN /hpf (0-5); Squamous Epithelial Cells - UA 0 SEEN /hpf (5-10); White Blood Cells 0 SEEN /hpf (0-5)
[2023-09-21 03:17] LABS: Absolute Lymphocyte Count 2.35 X10^3/uL (0.83-4.51); Absolute Neutrophil Count 2.7 X10^3/uL (2.0-7.7); Basophil# 0.03 X10^3/uL; Basophil% 0.5 % (0-1); Eosinophil# 0.09 X10^3/uL; Eosinophils% 1.6 % (0-5); Hematocrit 39.5 % (37-47); Hemoglobin 12.7 g/dL (12.0-15.0); Lymphocyte # 2.35 X10^3/ul (0.83-4.51); Lymphocyte % 41.9 % (19-41); Mean Corp Hgb Conc 32.2 g/dL (32-36); Mean Corpuscular Hgb 29.5 pg (27.0-32.0); Mean Corpuscular Volume 91.6 fL (81-99); Mean Platelet Vol. 10.6 fl (6.2-12.0); Monocyte# 0.42 X10^3/uL; Monocyte% 7.5 % (0-10); NRBC Flagged by Analyzer 0 % (0-5); Neutrophil # 2.71 X10^3/uL (2.7-7.7); Neutrophil % 48.3 % (47-70); Platelet Count 272 K/mm3 (150-450); RBC Distribution Width CV 12.8 % (11.6-14.6); RBC Distribution Width SD 43.1 fl (35.1-43.9); Red Blood Count 4.31 M/mm3 (4.2-5.4); White Blood Count 5.6 K/mm3 (4.4-11.0)
[2023-09-21 03:18] LABS: Color, Urine Yellow (Yellow); Glucose, Dipstick Normal (Normal); Ketone-Dipstick Negative (Negative); Leukocyte Esterase-Dipstick 25 /ul (Negative); Nitrite-Dipstick Negative (Negative); Occult Blood-Urine Negative /ul (Negative); Protein-Dipstick Negative (Negative); Specific Gravity, Urine 1.015 (1.002-1.030); Urine Bilirubin Dipstick Negative (Negative); Urine Clarity Clear (Clear); Urine Urobilinogen Normal (Normal)
[2023-09-21 03:42] LABS: AST(SGOT) 20 U/L (15-37); Alanine Aminotransfer ALT/SGPT 27 U/L (13-56); Albumin, Serum 3.7 g/dL (3.2-5.0); Alkaline Phosphatase 50 U/L (45-117); Anion Gap 5 (5-15); BUN 12 mg/dL (7-18); BUN/Creat Ratio 17.6 RATIO (10-20); Bilirubin, Direct 0.14 mg/dL (0.00-0.30); Calcium,Total 9.8 mg/dL (8.5-10.1); Chloride 108 mmol/L (98-107); Creatinine, Serum 0.68 mg/dL (0.55-1.02); EST Glomerular Filtration Rate 94 mL/min (>60); Est Glom Filt Rate - Afr Amer 114 mL/min (>60); Estimated Creatinine Clearance 100.95 ml/min; Globulin 3.8 g/dL (2.2-4.2); Glucose 126 mg/dL (74-106); Lipase 40 U/L (13-75); Potassium 3.4 mmol/L (3.5-5.1); Protein, Total 7.5 g/dL (6.4-8.2); Sodium Level 141 mmol/L (136-145)
--- NOTE | 2023-09-21 03:43 | CT_ITS ---
EXAM: CT ABDOMEN AND PELVIS WITH INTRAVENOUS CONTRAST CLINICAL INDICATION: abd pain TECHNIQUE: Helically acquired images were obtained of the abdomen and pelvis with intravenous contrast. This CT exam was performed using one or more of the following dose reduction techniques: automated exposure control, adjustment of the mA and/or kV according to patient size, and/or use of iterative reconstruction technique. CONTRAST: 75 cc of Isovue-370 IV. RADIATION DOSE: CTDIvol = 17.41 mGy, DLP = 1197.94 mGy-cm COMPARISON: No relevant prior studies available. FINDINGS: LOWER THORAX: Unremarkable. Lung bases are clear. No cardiomegaly. No significant pericardial effusion. ABDOMEN: LIVER: Hepatomegaly. There is diffuse low-attenuation of the liver. GALLBLADDER AND BILE DUCTS: Unremarkable. No calcified gallstones. No gallbladder distention or wall edema. No intra- or extrahepatic biliary ductal dilation. PANCREAS: Unremarkable. No focal cystic or solid mass. SPLEEN: Unremarkable. Normal size without focal cystic or solid mass. ADRENALS: Unremarkable. No nodules. KIDNEYS AND URETERS: Unremarkable. Normal renal size and position. No hydronephrosis. STOMACH AND BOWEL: Mild increased small bowel fluid may be due to gastroenteritis. No stomach or bowel distention. PELVIS: APPENDIX: Status post appendectomy. BLADDER: Unremarkable. REPRODUCTIVE: Exophytic leiomyoma measuring 5.7 cm in diameter arising from the right body of the uterus. ABDOMEN and PELVIS: INTRAPERITONEAL SPACE: Unremarkable. No ascites or other fluid collection. No free air. BONES/JOINTS: Unremarkable. No suspicious lytic or blastic abnormality. SOFT TISSUES: Small fat-containing paraumbilical hernia. VASCULATURE: Unremarkable. Abdominal aorta is non-dilated. LYMPH NODES: Unremarkable. No enlarged lymph nodes. CT/Abdomen/Pelvis W IV Cont ONLY IMPRESSION: 1. Exophytic leiomyoma measuring 5.7 cm in diameter arising from the right body of the uterus. 2. Mild increased small bowel fluid may be due to gastroenteritis. 3. Enlarged fatty liver. 4. Small fat-containing paraumbilical hernia. No bowel involvement. Electronically Signed: Delonte Musa MD at 4:41 EDT ,
[2023-09-21] MEDS: Ketorolac 30 MG/ML Syringe IV (04:44)
--- NOTE | 2023-09-21 05:24 | CT_ITS ---
EXAM: CT ANGIOGRAPHY ABDOMEN AND PELVIS WITHOUT AND WITH INTRAVENOUS CONTRAST CLINICAL INDICATION: abd pain TECHNIQUE: Helically acquired angiography images were obtained of the abdomen and pelvis without and with intravenous contrast. This CT exam was performed using one or more of the following dose reduction techniques: automated exposure control, adjustment of the mA and/or kV according to patient size, and/or use of iterative reconstruction technique. MIP reconstructed images were created and reviewed. CONTRAST: 100 cc of Isovue-370 IV. RADIATION DOSE: CTDIvol = 25.04 mGy, DLP = 1098.76 mGy-cm COMPARISON: No relevant prior studies available. FINDINGS: VASCULATURE: AORTA: Mild atherosclerotic changes of the aorta. Normal caliber abdominal aorta. No dissection. CELIAC TRUNK AND MESENTERIC ARTERIES: No acute findings. No occlusion or significant stenosis. No dissection. RENAL ARTERIES: No acute findings. No occlusion or significant stenosis. No dissection. ILIAC ARTERIES: No acute findings. No occlusion or significant stenosis. No dissection. LOWER THORAX: Unremarkable. Lung bases are clear. No cardiomegaly. No significant pericardial effusion. ABDOMEN: LIVER: Unremarkable. Homogeneous. No focal mass. GALLBLADDER AND BILE DUCTS: Unremarkable. No calcified gallstones. No gallbladder distention or wall edema. No intra- or extrahepatic biliary ductal dilation. PANCREAS: Unremarkable. No focal cystic or solid mass. SPLEEN: Unremarkable. Normal size without focal cystic or solid mass. ADRENALS: Unremarkable. No nodules. KIDNEYS AND URETERS: Unremarkable. Normal renal size and position. No hydronephrosis. STOMACH AND BOWEL: Unremarkable. No stomach or bowel distention. No focal inflammatory change. PELVIS: APPENDIX: No evidence of acute appendicitis. BLADDER: Unremarkable. REPRODUCTIVE: Exophytic leiomyoma measuring 5.7 cm arising from the right body of the uterus. ABDOMEN and PELVIS: INTRAPERITONEAL SPACE: Unremarkable. No ascites or other fluid collection. No free air. BONES/JOINTS: Unremarkable. No suspicious lytic or blastic abnormality. SOFT TISSUES: Unremarkable. No discrete abdominal or pelvic wall hernia. LYMPH NODES: Unremarkable. No enlarged lymph nodes. CT/CTA Abd/Pelvis W/WO Contrast IMPRESSION: 1. Exophytic leiomyoma measuring 5.7 cm arising from the right body of the uterus. 2. Mild atherosclerotic changes of the aorta. 3. No significant vascular abnormality. Electronically Signed: Delonte Musa MD at 5:59 EDT ,
[2023-09-21] MEDS: HYDROmorphone 1 MG/ML Syringe IV (05:28)
--- NOTE | 2023-09-21 06:13 | EX.ED.DYSGE1 ---
HPI History of Present Illness Chief Complaint: Abd Pain Informant: patient Narrative Narrative: Patient is a 57-year-old female with past medical history of hypertension and insulin-dependent diabetes. She states that today she noticed pain in the left mid upper abdomen without any type of trauma or excessive activity. She states as the day past she had increasing pain that led to nausea without vomiting. She states that she could not sleep secondary to the persistent pain and secondary to this comes in for evaluation [facility] Medical History Contact with and (suspected) exposure to other viral communicable diseases Acute streptococcal pharyngitis Lab test negative for COVID-19 virus URI (upper respiratory infection) Allergic reaction caused by a drug Diabetes Shoulder pain HTN (hypertension) Home Medications ?Medication ?Instructions ?Recorded ?Last Taken ?Type insulin glargine 100 unit/mL 10 unit SQ QHS 02/25/19 Unknown History subcutaneous solution pravastatin 10 mg tablet 10 mg PO DAILY 12/28/20 Unknown History metoprolol succinate 25 mg 25 mg PO DAILY palpitations 09/04/23 Unknown History tablet,extended release 24 hr dulaglutide 0.75 mg/0.5 mL mg subcut QWEEK 09/21/23 Unknown History subcutaneous pen injector (Trulicity) ondansetron 4 mg disintegrating 4 mg PO TID #21 tabs 09/21/23 Unknown Rx tablet oxycodone-acetaminophen 5 mg-325 1 tab PO Q6H PRN pain 3 days #12 09/21/23 Unknown Rx mg tablet (Percocet) tabs Allergy/AdvReac Type Severity Reaction Status Date / Time Sulfa (Sulfonamide Allergy Rash Verified 09/04/23 00:16 Antibiotics) chocolate flavor AdvReac Other Verified 09/04/23 00:16 soap AdvReac Rash Verified 09/04/23 00:16 Social History Smoking Status: Never smoker ROS ROS ED Constitutional Constitutional ED: Denies chills or fever(s) Eyes Eyes: Denies change in vision ENT ENT ED: Denies sore throat Cardiovascular Cardiovascular: Denies chest pain Respiratory/Chest Respiratory/Chest: Denies cough or dyspnea Gastrointestinal Gastrointestinal: Reports abdominal pain and nausea; Denies constipation, diarrhea or vomiting Genitourinary Genitourinary ED: Denies dysuria or hematuria Musculoskeletal Musculoskeletal: Denies back pain or myalgias Integumentary Denies rash Neurologic Neurologic: Denies headache(s) Hematologic/Lymphatic Hematologic/Lymphatic: Denies easy bleeding or easy bruising EXAM Physical Exam Const Vital Signs: 09/21/23 02:10 09/21/23 03:09 09/21/23 03:09 Temperature 97.5 F L 96.4 F L Temperature Source Temporal Temporal Pulse Rate 94 67 67 Respiratory Rate 16 16 16 Blood Pressure 184/85 H 189/89 H 189/89 H Blood Pressure Mean 118 122 122 Pulse Ox 98 97 97 Oxygen Delivery Method Room Air Room Air Room Air 09/21/23 04:00 09/21/23 04:22 09/21/23 05:00 Temperature 96.2 F L 96.1 F L Temperature Source Temporal Temporal Pulse Rate 70 72 58 L Respiratory Rate 18 17 15 Blood Pressure 157/68 H 153/62 H 149/63 H Blood Pressure Mean 97 92 91 Pulse Ox 98 98 98 Oxygen Delivery Method Room Air Room Air Room Air 09/21/23 06:00 09/21/23 06:00 09/21/23 06:21 Temperature 96.8 F L 96.2 F L Temperature Source Temporal Pulse Rate 53 L 57 L 60 Respiratory Rate 14 16 16 Blood Pressure 136/55 H 136/55 H 138/68 H Blood Pressure Mean 82 82 91 Pulse Ox 95 96 98 Oxygen Delivery Method Room Air Room Air Positive well nourished, well developed and obese General Appearance ED: well developed; Negative for pallor Nutritional Appearance: obese HEENT HEENT Narrative: Normocephalic atraumatic Eyes PERRL and EOMs intact bilaterally General Eye ED: Negative for scleral icterus Neck supple Neck Narrative: No nuchal rigidity or meningeal signs Resp normal respiratory effort and clear to auscultation bilaterally Cardio regular rate and regular rhythm Rate: other Other Details: Heart is regular rate and rhythm without murmurs rubs or gallops Radial and carotid pulses are equal and symmetric GI non-distended and no masses GI Narrative: Abdomen is soft and nondistended with normal active bowel sounds. Patient has pain on palpation in the left lateral mid to upper abdomen without voluntary guarding or rigidity. No pulsatile mass or fluid wave Auscultation: normoactive bowel sounds Palpation: soft Back/Spine Back/Spine Narrative: Mild left CVA pain noted Extremity normal to inspection Neuro oriented x3, CN's II-XII intact bilaterally and no sensory deficits noted Sensorium / Orientation: alert Motor Exam: strength 5/5 throughout Psych mental status grossly normal Skin no rashes or lesions noted and no wounds Skin Narrative: No overlying soft tissue changes to suggest trauma or infection General Skin Exam: Negative for jaundice or pallor MDM MDM MDM Narrative Medical decision making narrative: Patient arrived to the ER hypertensive otherwise with stable vitals. She reported still increasing pain in the left mid upper abdomen with mild left back pain. Differential diagnosis is for pancreatitis versus colitis versus small bowel obstruction versus kidney stone versus UTI/pyelonephritis versus mesenteric ischemia. Basic blood work was obtained which revealed no clinically significant findings. There was also no findings of blood work to suggest DKA or HHS. Urine sample showed no blood to suggest kidney stone and there were no signs of infection. CT with IV contrast was obtained based on the patient's persistent pain and revealed a leiomyoma but this was more to the right side which would most likely not cause her left-sided pain but otherwise no clinically significant findings. Despite Toradol morphine patient's pain persisted so therefore a CTA was obtained which revealed no signs of vascular derangement. Therefore at this time as patient's vitals have improved with pain medication and her workup reveals no clinically significant findings I do not feel there is need for admission to the hospital or further workup. She be given symptomatic pain medication and is otherwise safe for discharge History & Record Review Discussion w/independent historian: Patient Lab Data Attestation: I reviewed the patient's lab results. Labs: Laboratory Results - last 24 hr 09/21/23 09/21/23 02:40 03:00 WBC 5.6 RBC 4.31 Hgb 12.7 Hct 39.5 MCV 91.6 MCH 29.5 MCHC 32.2 RDW Std Deviation 43.1 RDW Coeff of Mike 12.8 Plt Count 272 MPV 10.6 Immature Gran % (Auto) 0.200 Neut % (Auto) 48.3 Lymph % (Auto) 41.9 H [place] % (Auto) 7.5 Eos % (Auto) 1.6 Baso % (Auto) 0.5 Absolute Neuts (auto) 2.7 Absolute Lymphs (auto) 2.35 Nucleated RBC % 0 Sodium 141 Potassium 3.4 L Chloride 108 H Carbon Dioxide 28.0 Anion Gap 5 BUN 12 Creatinine 0.68 Estim Creat Clear Calc 100.95 Est GFR (MDRD) Af Amer 114 Est GFR (MDRD) Non-Af 94 BUN/Creatinine Ratio 17.6 Glucose 126 H Calcium 9.8 Total Bilirubin 0.50 Direct Bilirubin 0.14 AST 20 ALT 27 Alkaline Phosphatase 50 Total Protein 7.5 Albumin 3.7 Globulin 3.8 Lipase 40 Urine Color Yellow Urine Clarity Clear Urine pH 7.0 Ur Specific [place] 1.015 Urine Protein Negative Urine Glucose (UA) Normal Urine Ketones Negative Urine Occult Blood Negative Urine Nitrite Negative Urine Bilirubin Negative Urine Urobilinogen Normal Ur Leukocyte Esterase 25 H Urine RBC 0 SEEN Urine WBC 0 SEEN Ur Squamous Epith Cells 0 SEEN Urine Bacteria 0 SEEN Urine Mucus 0 SEEN Radiography Diagnostic Testing: Clinical Impression(s) from Imaging Studies Abdomen/Pelvis CT 09/21/23 03:43 IMPRESSION: 1. Exophytic leiomyoma measuring 5.7 cm in diameter arising from the right body of the uterus. 2. Mild increased small bowel fluid may be due to gastroenteritis. 3. Enlarged fatty liver. 4. Small fat-containing paraumbilical hernia. No bowel involvement. Electronically Signed: Delonte Musa MD at 4:41 EDT , Abdomen/Pelvis CTA 09/21/23 05:24 IMPRESSION: 1. Exophytic leiomyoma measuring 5.7 cm arising from the right body of the uterus. 2. Mild atherosclerotic changes of the aorta. 3. No significant vascular abnormality. Electronically Signed: Delonte Musa MD at 5:59 EDT , Discharge Plan Triage Chief Complaint: Abd Pain ED Provider: Hayden Chatterjee Dx/Rx/DC Orders Clinical Impression: Nonspecific abdominal pain, HTN (hypertension), Insulin dependent diabetes mellitus Instructions: Abdominal Pain Prescriptions: New oxycodone-acetaminophen [Percocet] 5-325 mg tablet 1 tab PO Q6H PRN (Reason: pain) 3 Days Qty: 12 0RF ondansetron 4 mg tablet,disintegrating 4 mg PO TID Qty: 21 0RF No Action pravastatin 10 mg tablet 10 mg PO DAILY Patient Comments: Take 1 tablet by mouth once daily. insulin glargine 100 UNIT/ML solution 10 unit SQ QHS metoprolol succinate 25 mg tablet extended release 24 hr 25 mg PO DAILY Trulicity 0.75 mg/0.5 mL pen injector subcut QWEEK Stand Alone Forms: ED Work / School Excuse Primary Care Provider: Taurus Cortez Referrals: Taurus Cortez DO [Primary Care Provider] - Activity Restrictions/Additional Instructions: Please follow-up with your family doctor to discuss potential GI referral and need for possible EGD and/or colonoscopy if symptoms persist. Return to the ER should you have any further concerns Print Language: Setswana Disposition Disposition: Home, Self Care Discharge Date/Time: 09/21/23 06:26
== END 2023-09-21 06:26 | disposition home or self-care (01) ==
PROVIDERS: Emergency Provider Emergency Medicine; PCP Student in an Organized Health Care Education/Training Program; Visit Provider Emergency Medicine
DX: R10.9 Unspecified abdominal pain (principal); E11.9 Type 2 diabetes mellitus without complications; Z79.4 Long term (current) use of insulin; I10 Essential (primary) hypertension; Z79.899 Other long term (current) drug therapy; Z79.85 Long-term (current) use of injectable non-insulin antidiabetic drugs; E66.9 Obesity, unspecified
CPT/HCPCS: 74174; 74177; 80048; 80076; 81001; 83690; 85025; 96361; 96374; 96375; 99282; J7030; Q9967; A4216; J2405

== ENCOUNTER → 2024-02-10 | Outpatient (CLI) | payer OTHER, SELFPAY ==
--- NOTE | 2024-02-10 11:20 | RAD_ITS ---
INDICATION: RIGHT POSTERIOR RIB PAIN, INJURY OF BACK,FLANK PAIN EXAMINATION/TECHNIQUE: X-RAY - XR Ribs Unilateral W/ PA Chest Min 3 Views COMPARISON: Chest x-ray of 07/06/2019 FINDINGS: SOFT TISSUES: No soft tissue swelling or gas. BONES: No displaced fracture. No sclerotic or destructive changes observed. VISUALIZED LUNGS: Clear. No pneumothorax. RAD/Ribs Uni Min 3V w/PA Chest IMPRESSION: No evidence of displaced rib fracture. Electronically Signed: Jose De Jesus Sneed MD at 13:34 EDT ,
== END | disposition home or self-care (01) ==
LOC: RAD 11:17
PROVIDERS: PCP Student in an Organized Health Care Education/Training Program; Referring Provider Nurse Practitioner Family; Visit Provider Nurse Practitioner Family
DX: R10.9 Unspecified abdominal pain (principal); S39.92XA Unspecified injury of lower back, initial encounter
CPT/HCPCS: 71101

== ENCOUNTER → 2024-03-02 | Outpatient (CLI) | payer OTHER, SELFPAY ==
[2024-03-02 08:25] LABS: Hemoglobin A1c 7.8 % (3.8-5.6)
== END | disposition home or self-care (01) ==
PROVIDERS: PCP Student in an Organized Health Care Education/Training Program; Referring Provider Nurse Practitioner Family; Visit Provider Nurse Practitioner Family
DX: E11.42 Type 2 diabetes mellitus with diabetic polyneuropathy (principal)
CPT/HCPCS: 36415; 83036

== ENCOUNTER → 2024-11-23 | Outpatient (CLI) | payer OTHER, SELFPAY | END | disposition home or self-care (01) | LOC: RAD 11:37 | PROVIDERS: PCP Student in an Organized Health Care Education/Training Program; Referring Provider Chiropractor; Visit Provider Chiropractor | DX: M54.2 Cervicalgia (principal) | CPT/HCPCS: 72040 ==

== ENCOUNTER → 2025-01-18 | Outpatient (CLI) | payer OTHER, SELFPAY ==
[2025-01-18 08:34] LABS: Creatinine, Urine (random) 97.50 mg/dL (28.00-217.00); Microalbumin,Random Urine < 12.0 mg/L (<20 mg/L)
== END | disposition home or self-care (01) ==
LOC: LAB 07:46
PROVIDERS: Family Medicine; PCP Student in an Organized Health Care Education/Training Program; Referring Provider Nurse Practitioner Family; Visit Provider Nurse Practitioner Family
DX: E11.42 Type 2 diabetes mellitus with diabetic polyneuropathy (principal); E78.5 Hyperlipidemia, unspecified
CPT/HCPCS: 36415; 82043; 82570; 83036